=== PATIENT | male | born 1960 | race Caucasian/White ===

== ENCOUNTER 2024-07-04 07:45 | Outpatient (RCR) | payer OTHER, SELFPAY ==
[2024-07-04 15:51] LABS: Basophils Percent Auto 0.1 % (0.2-2.0); Hematocrit 48.7 % (42.0-54.0); Hemoglobin 17.8 g/dL (14.0-18.0); Immature Granulocytes Abs Auto 0.07 10^3/uL (0.00-0.03); Immature Granulocytes Pct Auto 0.5 % (0.0-0.5); Lymphocytes Absolute Auto 1.7 10^3/uL (1.2-3.8); Lymphocytes Percent Auto 13.1 % (20.5-60.0); Mean Corpuscular HGB Conc 36.6 g/dL (29.9-35.2); Mean Corpuscular Volume 98.4 fL (80.0-94.0); Mean Platelet Volume 9.3 fL (9.5-13.5); Neutrophils Absolute Auto 9.4 10^3/uL (1.4-6.5); Neutrophils Percent Auto 71.3 % (43.0-75.0); Platelet Count 343 10^3/uL (150-450); Red Blood Count 4.95 10^6/uL (4.70-6.10); Red Cell Distribution Width 12.5 % (11.0-15.0); Reticulocyte Pct Auto 2.91 % (0.60-3.10); White Blood Count 13.2 10^3/uL (4.0-11.0)
[2024-07-04 16:15] LABS: Alanine Aminotransferase 66 U/L (16-63); Albumin Globulin Ratio 1.2; Albumin Level 3.8 g/dL (3.4-5.0); Alkaline Phosphatase 68 U/L (46-116); Anion Gap 15.2; Aspartate Amino Transferase 33 U/L (15-37); BUN Creatinine Ratio 22.7; Bilirubin Total 2.1 mg/dL (0.2-1.0); Calcium 9.7 mg/dL (8.5-10.1); Carbon Dioxide 23.4 mmol/L (21.0-32.0); Chloride 101 mmol/L (98-107); Estimated GFR (African America >60 (>=60 mL/min/1.73m^2); Estimated GFR (Non-African Ame >60 (>=60 mL/min/1.73m^2); Globulin 3.1 g/dL; Glucose 162 mg/dL (74-106); Lactate Dehydrogenase 186 U/L (85-227); Potassium 3.6 mmol/L (3.5-5.1); Sodium 136 mmol/L (136-145); Total Protein 6.9 g/dL (6.4-8.2)
[2024-07-04 16:40] LABS: Percent Iron Saturation 56.6 %
[2024-07-06 06:09] LABS: Vitamin B12 319 pg/mL (232-1245)
[2024-07-06 16:10] LABS: Albumin 4.1 g/dL (2.9-4.4); Alpha-1-Globulin 0.2 g/dL (0.0-0.4); Alpha-2-Globulin 0.7 g/dL (0.4-1.0); Erythropoietin (EPO), Serum 2.8 mIU/mL (2.6-18.5); Gamma Globulin 0.7 g/dL (0.4-1.8); Immunoglobulin A, Qn, Serum 219 mg/dL (61-437); Immunoglobulin G, Qn, Serum 778 mg/dL (603-1613); Immunoglobulin M, Qn, Serum 40 mg/dL (20-172); Protein, Total 6.7 g/dL (6.0-8.5)
== END 2024-07-06 23:59 | disposition home or self-care (01) ==
LOC: HEMC 07:45
PROVIDERS: PCP Family Medicine; Visit Provider Internal Medicine Hematology & Oncology
DX: D45 Polycythemia vera (principal); E83.10 Disorder of iron metabolism, unspecified
CPT/HCPCS: 36415; 80053; 81256; 82607; 82668; 82728; 82746; 82784; 83540; 83550; 83615; 84155; 84165; 85025; 85045; 86334; G0463

== ENCOUNTER 2024-07-20 07:54 | Outpatient (RCR) | payer OTHER, SELFPAY ==
--- OUTSIDE RECORDS SUMMARY | 2024-07-20 07:59 | XMS_ITS | CCD ---
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 Role Phone Michelle Carroll Primary Care Physician Mehdi Vieira Referring Unavailable Mehdi Vieira Attending Unavailable Mehdi Vieira Admitting Unavailable Michelle Carroll Attending Unavailable Michelle Carroll Admitting Unavailable MICHELLE CARROLL Attending Unavailable MEHDI VIIERA Attending Unavailable MEHDI VIEIRA Referring Unavailable MEHDI VIEIRA Referring Unavailable ARISTEO MESA Attending Unavailab MEHDI Boone Referring Unavailable MEHDI VIEIRA Attending Unavailable BARB RANKIN Attending Unavailab MEHDI Boone Attending Unavailable MICHELLE CARROLL Attending Unavailable MICHELLE CARROLL Referring Unavailable MICHELLE CARROLL Attending Unavailable MICHELLE CARROLL Attending Unavailable Michelle Carroll MD Primary Care Provider Michelle Carroll MD Unavailable Medications Current Medications Medication Drug Class(es) Dates Sig (Normalized) Sig (Original) biotin 10 mg oral tablet (2 sources) Start: 01-26-2024 take 1 tablet by mouth once daily Biotin Maximum Strength 90453 MCG tablet Take 1 tablet by mouth Daily 01/26/2024 Active hydroCHLOROthiazide 25 mg / lisinopril 20 mg oral tablet (3 sources) Thiazide Diuretic, Angiotensin Converting Enzyme Inhibitor Start: 07-04-2024 End: 07-04-2025 take 1 tablet by mouth once daily lisinopril-hydroC HLOROthiazide 20-25 MG tablet Indications: Essential hypertension (CMS/HCC) Take 1 tablet by mouth Daily 90 tablet 3 07/04/2024 07/04/2025 Active Start: 05-03-2024 End: 07-01-2024 take 1 tablet by mouth once daily lisinopril-hydroCHLOROthiazide 20-25 MG tablet Indications: Essential hypertension (CMS/HCC) Take 1 tablet by mouth Daily 90 tablet 3 05/03/2024 07/01/2024 Discontinued (Reorder) Problems Active Problems Problem Classification Problem Date Documented Date Episodic/Chronic Essential hypertension (3 sources) Essential hypertension; Translations: [Essential (primary) hypertension] Onset: 06-25-2023 07-01-2024 Chronic Other nutritional; endocrine; and metabolic disorders (2 sources) Obesity; Translations: [Obesity, unspecified] Onset: 06-25-2023 06-25-2023 Chronic Spondylosis; intervertebral disc disorders; other back problems (2 sources) Degeneration of lumbosacral intervertebral disc; Translations: [DDD (degenerative disc disease), lumbosacral] Onset: 11-29-2023 11-29-2023 Chronic Past or Other Problems Problem Classification Problem Date Documented Da te Episodic/Chronic Other acquired deformities (2 sources) Lumbar spondylolisthesis; Translations: [Spondylolisthesis, lumbar region] Onset: 11-29-2023 11-29-2023 Episodic Other connective tissue disease (2 sources) Bilateral trochanteric bursitis; Translations: [Trochanteric bursitis, right hip] Onset: 01-13-2024 01-13-2024 Episodic Spondylosis; intervertebral disc disorders; other back problems (8 sources) Chronic low back pain; Translations: [Lumbago with sciatica, left side] Onset: 11-29-2023 11-29-2023 Episodic Results Test Name Value Interpretation Reference Range Facility ALL CBC WITH AUTO DIFFon BASOPHILS ABSOLUTE AUTO 0 [facility] Basophils/100 WBC (Bld) 0.1 % Low 0.2 - 2.0 % [facility] Eosinophils/100 WBC (Bld) 0 % Low 0.9 - 7.0 % [facility] Erythrocyte distribution width (RBC) [Ratio] 12.5 % 11.0 - 15.0 % [facility] Hematocrit (Bld) [Volume fraction] 48.7 % 42.0 - 54.0 % [facility] ([facility]ld[facility] [Mass/Vol] 17.8 g/dL 14.0 - 18.0 g/dL [facility] IMMATURE GRANULOCYTES ABS AUTO 0.07 High [facility] Immature granulocytes/100 WBC (Bld) 0.5 % 0.0 - 0.5 % [facility] Interpretation and review of laboratory results Abnormal [facility] LYMPHOCYTES ABSOLUTE AUTO 1.7 [facility] Lymphocytes/100 WBC (Bld) 13.1 % Low 20.5 - 60.0 % [facility] MCH (RBC) [Entitic mass] 36 pg High 25.9 - 34.0 pg [facility] MCHC (RBC) [Mass/Vol] 36.6 g/dL High 29.9 - 35.2 g/dL [facility] MCV (RBC) [Entitic vol] 98.4 fL High 80.0 - 94.0 fL [facility] MONOCYTES ABSOLUTE AUTO 2 High [facility] Monocytes/100 WBC (Bld) 15 % High 1.7 - 12.0 % [facility] NEUTROPHILS ABSOLUTE AUTO 9.4 High [facility] Neutrophils/100 WBC (Bld) 71.3 % 43.0 - 75.0 % [facility] Platelet mean volume (Bld) [Entitic vol] 9.3 fL Low 9.5 - 13.5 fL [facility] are [facility] EO # 0 [facility] PLT 343 [facility] RBC 4.95 [facility] WBC 13.2 High [facility] No Panel Informationon 07-04 [facility] RETICULOCYTE PCT AUTOon 06-07 RETICULOCYTE PCT AUTO 2.91 % 0.60 - 3.10 % [facility] XR HIP 2 OR 3 VW LEFTon 04-07 XR HIP 2 OR 3 VW LEFT XR - LT HIP, UNILATERAL, W/WO PELVIS 2-3 VIEWS Reason for exam: Left lateral hip pain Prior comparative studies: None Findings: There is moderate joint space narrowing with sclerosis and osteophyte formation in both hips. Remainder of the pelvis is unremarkable. SI joints appear intact. The soft tissues are unremarkable. No fracture, malalignment or subluxation is apparent. Osseous density is normal. Impression: 1. No acute osseous abnormality identified. 2. Moderate degenerative change in the left hip. Electronically Signed Aníbal Rivera M.D. 2024-05-04 10:31:22 Normal Not Available MRI Spine Lumbar w/o Contras ton 12-06-2023 MRI Spine Lumbar w/o Contrast Exam Date/Time: 12/03/2023 11:33 EDT Reason for Exam: M54.42, M54.41, G89.29 Report IMPRESSION: MULTILEVEL DEGENERATIVE CHANGES. FINDINGS ARE MOST PROMINENT AT L4-L5, WHERE THERE IS SEVERE FOCAL SPINAL CANAL STENOSIS. CLINICAL HISTORY: M54.42, M54.41, G89.29. Bilateral leg numbness. COMMENT: Unenhanced images were obtained. On sagittal head lineman localizer images, there are anterior extradural defects at the C5-C6, C6-C7, and C7-T1 levels and there is a posterior extradural defect at the C2-C3 level, not adequately assessed on the head lineman localizer images. There is hypertrophic spurring of vertebral bodies. There are minimal or small Schmorl's nodes involving all of the vertebral bodies from T11 through S1. There are reactive signal intensity changes involving vertebral body endplates, most prominent at L5-S1 and involving the inferior endplate of L4. The vertebral bodies are maintained in height. No fracture nor subluxation is evident. There are rounded focal areas of signal intensity change involving most of the vertebral bodies, the largest measures 1 cm diameter and is within the L3 vertebral body, and small vertebral body hemangiomas are suspected. T11-T12: There is disc bulging with mild indentation the dural sac anteriorly. T12-L1: The disc is unremarkable. There are hypertrophic facet arthritic changes with hypertrophy of ligamenta flava, but without significant spinal canal or neural foraminal stenosis. L1-L2: There is disc bulging, with minimal indentation of the dural sac anteriorly. There are mild hypertrophic facet arthritic changes with hypertrophy of ligamenta flava. There is no significant spinal canal nor neural foraminal stenosis. L2-L3: There is diffuse disc bulging, with mild indentation of the dural sac anteriorly. There are mild hypertrophic facet arthritic changes with hypertrophy of ligamenta flava. There is mild focal spinal canal stenosis. L3-L4: There is diffuse disc bulging, with mild indentation of the dural sac anteriorly. There are mild hypertrophic facet arthritic changes with hypertrophy of ligamenta flava. There is mild focal spinal canal stenosis. There is bilateral neural foraminal encroachment. L4-L5: There is diffuse disc bulging, with moderate indentation of the dural sac anteriorly. There are prominent hypertrophic facet arthritic changes with hypertrophy of ligamenta flava. There is severe focal spinal canal stenosis. There are small hypertrophic spurs of the uncinate processes bilaterally. There is bilateral neural foraminal encroachment. L5-S1: There is interspace narrowing. There are hypertrophic spurs of the uncinate processes bilaterally. There is disc bulging and there are posterior hypertrophic Report spurs the vertebral bodies, with mild indentation of the dural sac anteriorly. There are prominent hypertrophic facet arthritic changes and hypertrophy of ligamentum flavum. There is mild constriction of the spinal canal at this level. There is bilateral neural foraminal stenosis. No intradural lesion is noted. The conus medullaris is unremarkable. Ordering Provider: Mehdi Vieira FINAL REPORT Dictated: 12/06/2023 3:02 pm Etienne Jimenez M.D. Signed (Electronic Signature): 12/06/2023 3:02 pm Signed by: Etienne Jimenez M.D. Transcribed by: LEIGH Technologist: BRITTNY [facility] Consent for Treatmenton 11-05 Consent for Treatment [id number] .00TIFF [facility] RAD - MRI Screening Formon 0 12-03-2023 RAD - MRI Screening Form [id number]# 1.00TIFF [facility] Physician Orderon 11-30-2023 Physician Order [id number] .00TIFF [facility] XR LUMBAR SPINE 4+ VIEWS WIT H FLEXION EXTENSIONon 11-26-2023 XR LUMBAR SPINE 4+ VIEWS WITH FLEXION EXTENSION EXAMINATION: XR LUMBAR SPINE 4+ VIEWS WITH FLEXION EXTENSION TECHNIQUE: 8 views of the lumbar spine. HISTORY: Low back pain COMPARISONS: None available. FINDINGS: Mild dextrocurvature. Lumbar vertebral body heights are maintained. Mild intervertebral height loss at L4-L5 and moderate intervertebral disc height loss at L5-S1. Multilevel degenerative endplate spurring. Facet arthropathy of the lower lumbar spine. Minimal retrolisthesis of L2 on L3, L3 on L4, and L4 on L5 that does not significantly change with flexion or extension. No spondylolysis. IMPRESSION: Degenerative changes of the lumbar spine. ELECTRONICALLY SIGNED BY: Ap Zambrano, DO Normal Not Available XR Spine Cervical 4 or 5 Vie wson 06-30-2023 XR Spine Cervical 4 or 5 Views Exam Date/Time: 06/29/2023 10:09 EDT Reason for Exam: M54.2 neck pain Report IMPRESSION: MODERATELY EXTENSIVE CERVICAL SPONDYLOSIS, DESCRIBED. EXAM: XR Spine Cervical 4 or 5 Views DATE: 06/29/2023 9:53 AM CLINICAL HISTORY: M54.2 neck pain. COMPARISON: None available. TECHNIQUE: AP, lateral, oblique, and odontoid radiographs of the cervical spine were obtained. FINDINGS: Mild reversal of the normal cervical lordosis is present with mild to moderate disc space narrowing, posterolateral endplate osteophytosis and hypertrophic facet changes, approximately 2 to 3 mm of anterolisthesis of C3 over C4, C4 over C5 and retrolisthesis of C5 over C6, which results in mild to moderate bony neural foraminal narrowing C4-5 through C6-7. There is no compression, fracture, worrisome bone destruction, or other findings of concern identified. The visualized paraspinous soft tissues are unremarkable. Ordering Provider: Michelle Carroll FINAL REPORT Dictated: 06/30/2023 1:54 pm John Kulkarni MD Signed (Electronic Signature): 06/30/2023 1:54 pm Signed by: John Kulkarni MD Transcribed by: LEIGH Technologist: PETER Technical Comments Radiation Dose: Ka,r in mGy = na DAP = na [facility] Consent for Treatmenton 06-07 Consent for Treatment [id number] .00TIFF [facility] Physician Orderon 06-29-2023 Physician Order [id number] .00TIFF [facility] Encounters Encounter Date Encounter Type Care Provider Facility Start: 07-04-2024 End: 07-04-2024 [facility] Result Encounter Generic External Data Provider [facility] Unsolicited Start: 07-04-2024 End: 07-04-2024 [facility] Result Encounter Generic External Data Provider [facility] External [facility] Unsolicited Start: 07-01-2024 End: 07-04-2024 Refill Michelle Carroll MD Work Phone: [facility] Comment on above: Essential hypertensi on ([facility]) Start: 05-18-2024 End: 05-18-2024 ambulatory MICHELLE CARROLL Not Available Start: 05-04-2024 End: 05-04-2024 ambulatory MICHELLE CARROLL Not Available Start: 05-03-2024 End: 05-03-2024 ambulatory MICHELLE CARROLL Not Available Start: 03-15-2024 End: 03-15-2024 ambulatory MEHDI W VIEIRA Not Available Start: 02-16-2024 End: 02-16-2024 ambulatory BARB RANKIN Not Available Start: 01-13-2024 End: 01-13-2024 ambulatory MEHDI VIEIRA Not Available Start: 12-30-2023 End: 12-30-2023 ambulatory ARISTEO MESA Not Available Start: 12-20-2023 End: 12-20-2023 ambulatory MEHDI Guadalupe BAUER Not Available Start: 12-03-2023 End: 12-04-2023 ambulatory Mehdi W Vieira Facility:[facility] Start: 12-03-2023 End: 12-03-2023 Patient encounter procedure Mehdi Vieira [facility] Start: 11-26-2023 End: 11-26-2023 ambulatory MEHDI Guadalupe VIEIRA Not Available Start: 11-08-2023 End: 11-08-2023 ambulatory MICHELLE CARROLL Not Available Start: 08-19-2023 End: 08-19-2023 ambulatory MICHELLE CARROLL Not Available Start: 06-29-2023 End: 06-30-2023 ambulatory Michelle Carroll Facility:[facility] Procedures Date Procedure Procedure Detail Performing Clinician Start: 07-04-2024 ALL CBC WITH AUTO DIFF Generic External Data Provider Start: 07-04-2024 RETICULOCYTE PCT AUTO G eneric External Data Provider Plan of Treatment Date Care Activity Detail Author Start: 05-07-2024 Influenza vaccination Influenza Vacc ine (#1) [facility] Start: 1960 Screening for malign ant neoplasm of colon [facility] Healthcare Payers Date Payer Category Payer Private Health Insurance [employer] [id number] 2022 Unknown [id number] 1960 Unknown [id number] [id number]. 727 1960 Unknown [id number] 2.16.840.1.332479.3.579.2. 727 1960 Unknown [id number] 2.16.840.1.857896.3.579.2. 1259 1960 Unknown [id number] 2.16.840.1.272365.3.579.2. 9 1960 Unknown [id number] 2.16.840.1.197282.3.579.2. 9 1960 Unknown [id number] 2.16.840.1.672275.3.579.2. 9 1960 Unknown [id number] 2.16.840.1.387625.3.579.2. 9 1960 Unknown [id number] 2.16.840.1.458404.3.579.2. 1258 1960 Unknown [id number] 2.16.840.1.741612.3.579.2. 9 1960 Unknown [id number] 2.16.840.1.133679.3.579.2. 12581 Unknown [id number] 2.16.840.1.300758.3.579.2. 9 1960 Unknown [id number] 2.16.840.1.887451.3.579.2. 9 1960 Unknown [id number] 2.16.840.1.684784.3.579.2. 9 1960 Unknown [id number] 2.16.840.1.716661.3.579.2. 9 Social History Date Type Detail Facility Tobacco smoking status [facility] Start: 08-18-2023 End: 05-18-2024 Sex Assigned At Male [facility] Start[facility] 06-[facility]23 [facility] Start: 06-25-2023 Tobacco use and exposure Smoke less tobacco non-user [facility] Start: 05-18-2024 Alcoholic beverage intake Current drinker of alcohol (finding) [facility] Start: 08-18-2023 End: 05-18-2024 Alcoholic beverage intake [facility] Within the last year , have you been afraid of your partner or ex-partner? No [facility] Do you belong to any clubs or organizations such as yarsanism groups, unions, fraternal or athletic groups, or school groups? Yes [facility] Are you now , , , , never or living with a partner? [facility] How often to you hav e a drink containing alcohol? 4 or more times a week [facility] How many standard dr inks containing alcohol do you have on a typical day? 5 or 6 [facility] How often do you hav e 6 or more drinks on 1 occasion? Weekly [facility] How hard is it for y ou to pay for the very basics like food, housing, medical care, and heating Not hard at all [facility] Do you feel stress - tense, restless, nervous, or anxious, or unable to sleep at night because your mind is troubled all the time - these days [OSQ] To some extent [facility] (I/We) worried wheclaudio er (my/our) food would run out before (I/we) got money to buy more. Never true [facility] Start: 1960 Sex assigned at Not on file [facility] NEGATED: Highlighted rowStart: NINF History of tobacco use Passive smoker [facility] Evaluation + Plan note Note Date & Type Note Facility Evaluation + Plan note No data available for this section [facility] Evaluation note Note Date & Type Note Facility Evaluation note Diagnosis Essential hypertension (CMS/HCC) Unspecified essential hypertension documented in this encounter [facility] Hospital Discharge instructions Note Date & Type Note Facility Hospital Discharge instructions No data available for this section [facility] Progress note Note Date & Type Note Facility Progress note No data available for this section [facility] Summary Purpose Family History No Family History Records Found Advance Directives No Advanced Directives Records FoundNo Advanced Directives Records Found Additional Source Comments Patient Care team informatio n (unrecognized section and content) Industrial Spray Painter Relationship Specialty Start Date End Date Michelle Carroll MD [address] [place] [address] PCP - General Family Medicine 01/12/23 Michelle Carroll MD [address] [place] [address] PCP - Medical Spout Commercial 09/06/23 09/05/99 Industrial Spray Painter Relationship Specialty Start Date End Date Michelle Carroll MD [address] [place] [id number] PCP - General Family Medicine 01/12/23 Michelle Carroll MD [address] [place] [id number] PCP - Medical Spout Commercial 09/06/23 09/05/99 (unrecognized sect ion and content) No Status Records FoundNo Status Records Found INFORMATION SOURCE (unrecogn ized section and content) DATE CREATED AUTHOR 12/07/2023 [facility] DATE CREATED AUTHOR AUTHOR'S ORGANIZ ATION 05/20/[address] [place] [address] [facility] [employer] Reason for Visit (unrecogniz ed section and content) Reason Onset Date Comments Med Refill 07/01/2024 FOR RECORDS PERTAINING TO PATIENTS WHO ARE OR HAVE BEEN ENROLLED IN A CHEMICAL DEPENDENCY/SUBSTANCEABUSE PROGRAM, SOME INFORMATION MAY BE OMITTED. This clinical summary was aggregated from multiple sources. Caution should be exercised in using it in the provision of clinical care. This summary normalizes information from multiple sources, and as a consequence, information in this document may materially change the coding, format and clinical context of patient data. In addition, data may be omitted in some cases. CLINICAL DECISIONS SHOULD BE BASED ON THE PRIMARY CLINICAL RECORDS. [facility] [employer] [facility]. provides no warranty or guarantee of the accuracy or completeness of information in this document.
== END 2024-07-27 09:13 | disposition home or self-care (01) ==
LOC: HEMC 07:54
PROVIDERS: PCP Family Medicine; Visit Provider Internal Medicine Hematology & Oncology
DX: D45 Polycythemia vera (principal); E83.10 Disorder of iron metabolism, unspecified; R20.0 Anesthesia of skin; I10 Essential (primary) hypertension; R79.89 Other specified abnormal findings of blood chemistry
CPT/HCPCS: G0463

== ENCOUNTER 2024-09-26 07:35 | Outpatient (RCR) | payer OTHER, SELFPAY | END 2024-09-27 11:10 | disposition home or self-care (01) | LOC: HEMC 07:35 | PROVIDERS: PCP Family Medicine; Visit Provider Internal Medicine Hematology & Oncology | DX: D45 Polycythemia vera (principal); E83.10 Disorder of iron metabolism, unspecified; E83.110 Hereditary hemochromatosis; D72.829 Elevated white blood cell count, unspecified | CPT/HCPCS: G0463 ==

== ENCOUNTER 2024-11-14 07:50 | Outpatient (RCR) | payer OTHER, SELFPAY | END 2024-11-15 08:05 | disposition home or self-care (01) | LOC: HEMC 07:50 | PROVIDERS: PCP Family Medicine; Visit Provider Internal Medicine Hematology & Oncology | DX: D45 Polycythemia vera (principal); E83.10 Disorder of iron metabolism, unspecified; E83.110 Hereditary hemochromatosis; D72.829 Elevated white blood cell count, unspecified | CPT/HCPCS: 87075; 87150; 87186; G0463 ==